=== PATIENT | male | born 1980 | race Caucasian/White ===

== ENCOUNTER 2016-11-26 22:35 | Emergency (ER) | payer OTHER ==
[2016-11-26] MEDS ORDERED: DIPH,PERTUS(ACELL)TETVAC-LF 0.5 ML VIAL IM ONE (23:56)
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
--- NOTE | 2016-11-27 00:36 | XR ---
EXAM: XR Left Finger(s), 2 or More Views. CLINICAL HISTORY: Reason: Pain TECHNIQUE: 3 coned-down views of the fifth digit with partial visualization of adjacent digits. COMPARISON: No relevant prior studies available. FINDINGS: Soft tissue injury. There is a punctate density seen at the plantar aspect of the soft tissues seen on all views. Correlate for small foreign body. Seen at level of tip of distal phalanx. On lateral view appears to be at the cutaneous surface. There is slight irregularly to the distal phalanx best appreciated on the PA view which may represent nondisplaced fracture. IMPRESSION: Possible fracture of the distal phalanx. Punctate density seen in the plantar aspect of soft tissues. Correlate for small foreign body. Soft tissue injury.
[2016-11-27] MEDS ORDERED: ceFAZolin 1,000 MG VIAL IM STA (00:40)
[2016-11-27] MEDS ORDERED: HYDROcodone/APAP 5-325MG 1 EACH TAB PO STA (01:19)
--- NOTE | 2016-11-27 01:36 | XR ---
EXAM: XR Left Finger(s), 2 or More Views. CLINICAL HISTORY: Reason: Pain TECHNIQUE: 2 cone-down views centered on the fifth digit. COMPARISON: Earlier same date FINDINGS: Tiny foreign body seen on previous is no longer present. There is a lucency in this area likely related to removal of foreign body. Soft tissue injury. Questionable lucency at the tuft of distal phalanx again noted. Subtle nondisplaced fracture is not entirely excluded. IMPRESSION: Interval removal of foreign body. Questionable lucency at the tuft of distal phalanx again noted. Subtle nondisplaced fracture is not entirely excluded. Findings equivocal.
[2016-11-27 01:38] VITALS: BP 142/54; PULSE 52; RESP 18; TEMP 97.8
== END 2016-11-27 01:38 | disposition home or self-care (01) ==
LOC: EC 22:35
DX: S62.667A Nondisplaced fracture of distal phalanx of left little finger, initial encounter for closed fracture (principal); S61.327A Laceration with foreign body of left little finger with damage to nail, initial encounter; F17.200 Nicotine dependence, unspecified, uncomplicated; Z23 Encounter for immunization; W23.0XXA Caught, crushed, jammed, or pinched between moving objects, initial encounter; Y92.69 Other specified industrial and construction area as the place of occurrence of the external cause; Y99.0 Civilian activity done for income or pay
CPT/HCPCS: 73140; 90715; 99283; 12001; 96372; 90471; J0690

== ENCOUNTER → 2018-06-18 | Outpatient (CLI) | payer OTHER ==
--- NOTE | 2018-06-18 09:56 | XR ---
EXAM TYPE: LUMBAR SPINE X RAY SERIES COMPARISON: NONE HISTORY: Pain TECHNIQUE: 3 views are submitted. FINDINGS: Alignment is anatomic. The pedicles are intact. The transverse processes are intact. There is no s pondylolysis or spondylolisthesis. IMPRESSION: 1. No acute process.
--- NOTE | 2018-06-18 09:58 | XR ---
EXAMINATION TYPE: XR sacrum coccyx DATE OF EXAM: 06/18/2018 COMPARISON: NONE HISTORY: Pain Three views are submitted. Sacrum is intact. SI joints are symmetric. Coccyx appears to be intact. Visualized pelvic structures intact. IMPRESSION: 1. No acute fracture. If symptoms persist consider CT scan.
--- NOTE | 2018-06-18 09:59 | XR ---
EXAMINATION TYPE: XR thoracic spine complete DATE OF EXAM: 06/18/2018 COMPARISON: NONE HISTORY: Pain Alignment is anatomic. There is no compression deformities. Mild hypertrophic changes are seen with multilevel mild degenerative disc disease. Curvature of the spine noted. IMPRESSION: 1. Multilevel degenerative disc disease.
== END ==
LOC: RADXRMAIN 09:10
PROVIDERS: ATTEND Emergency Medicine
DX: S30.0XXA Contusion of lower back and pelvis, initial encounter (principal); M51.34 Other intervertebral disc degeneration, thoracic region
CPT/HCPCS: 72072; 72100; 72220

== ENCOUNTER 2019-07-31 19:13 | Emergency (ER) | payer OTHER ==
[2019-07-31 19:19] VITALS: BP 140/94; PULSE 93; RESP 20; TEMP 97.8
[2019-07-31 19:50] LABS: Glucose,Whole Blood 93 mg/dL (75-99)
--- NOTE | 2019-07-31 19:54 | ED ---
General Adult HPI - General Chief complaint: Extremity Problem,Nontraumatic Stated complaint: Dizziness Numbness in feet Time Seen by Provider: 07/31/19 19:22 Source: patient Mode of arrival: ambulatory Limitations: no limitations - History of Present Illness Initial comments: Connor is a 38-year-old male with a history of psoriasis who presents to the emergency Department today with a multitude of chronic complaints. Connor reports that for the past 6 months or more he has noticed numbness in his bilateral feet, he reports that he feels like the balls of his feet to the toes tends to go numb at times. Sometimes at night and seems to be the worse, doesn't seem to be worse with any activity or associated with any back pain. He denies any weakness in the legs. He denies any symptoms of movement or restless leg type symptoms. He is not experiencing that today. Patient also states that sometimes he experiences chest pain at rest, though he is able to exercise regularly at the gym and ride his bike without chest pain shortness of breath lightheadedness or palpitations. He states that occasionally he just feels like his heart isn't beating right. This has not happened today or yesterday. Patient also states he has a rash in the right side of his groin that has been there for 4-6 months without improvement he's been applying Neosporin without improvement. Patient states that his girlfriend son came home from med school today and when he discussed his symptoms with him he advised the patient be evaluated by Dr. sal as possible. Patient does not have a primary care physician, has not seen a doctor in a number of years so he decided to come to the emergency department. Patient states that none of the symptoms started today or are new - Related Data Previous Rx's Medication Instructions Recorded Naproxen 500 mg PO Q12HR #30 tab 12/11/15 HYDROcodone/APAP 5-325MG [[place] 1 tab PO Q6HR PRN #6 tab 12/25/15 5-325] Cephalexin [Keflex] 500 mg PO Q6HR #40 cap 11/27/16 Allergies Allergy/AdvReac Type Severity Reaction Status Date / Time No Known Allergies Allergy Verified 07/31/19 19:19 Review of Systems ROS Statement: Those systems with pertinent positive or pertinent negative responses have been documented in the HPI. ROS Other: All systems not noted in ROS Statement are negative. Past Medical History Past Medical History: Skin Disorder History of Any Multi-Drug Resistant Organisms: MRSA Date of last positivie culture/infection: 05/21/15 MDRO Source:: left leg Past Surgical History: Orthopedic Surgery Additional Past Surgical History / Comment(s): right elbow Past Psychological History: Anxiety Smoking Status: Current every day smoker Past Alcohol Use History: None Reported Past Drug Use History: None Reported General Exam - General Exam Comments Initial Comments: Physical Exam GENERAL: Patient is well-developed and well-nourished. Patient is nontoxic and well-hydrated and is in no distress. HENT: Normocephalic, Atraumatic. Psoriatic rash on face EYES: PERRL, EOMI PULMONARY: Unlabored respirations. No audible rales rhonchi or wheezing was noted. CARDIOVASCULAR: There is a regular rate and rhythm without any murmurs gallops or rubs. ABDOMEN: Soft and nontender with normal bowel sounds. SKIN: Skin is warm, dry Rash in right groin region appears to be yeast in nature : Normal external genitalia NEUROLOGIC: Patient is alert and oriented x3. Moving all extremities spontaneously Normal strength in bilateral lower extremities MUSCULOSKELETAL: Normal extremities with adequate strength and full range of motion. No lower extremity swelling or edema. No calf tenderness. PSYCHIATRIC: Normal psychiatric evaluation. Limitations: no limitations Course Vital Signs 07/31/19 07/31/19 19:15 20:05 Temperature 97.8 F 97.8 F Pulse Rate 93 93 Respiratory 20 20 Rate Blood Pressure 140/94 140/94 O2 Sat by Pulse 98 98 Oximetry EKG Findings - EKG Comments: EKG Findings:: EKG was obtained due to complaint of occasional chestpain and palpitations. EKG was obtained at 1935 rate is 74 rhythm is sinus is leftward axis normal intervals, [place] 162, QRS 88, QTC [address] elevations or depressions is no evidence of acute ischemia or infarction. Medical Decision Making - Medical Decision Making The patient was seen and evaluated history is obtained from the patient. Patient has a multitude of chronic complaints, no acute complaints today in fact most the symptoms he is complaining about including the numbness in his feet he is not experiencing today. Has not experienced chest pain in the number of days. Denies any acute complaints today. Physical exam is unremarkable aside from a rash consistent with psoriasis as well as a rash in the right groin consistent with a candidal infection. Advised patient to use topical treatment for this. I discussed with the patient that he likely needs to follow with a primary care physician and have further tests run however medical screening exam reveals no acute findings no indication for further workup here in the emergency department. Patient comfortable with plan for outpatient follow-up. - Lab Data Lab Results 07/31/19 Range/Units 19:49 POC Glucose (mg/dL) 93 (75-99) mg/dL POC Glu Ethylene Compressor Operator ID Reese Allen Disposition Clinical Impression: Atypical chest pain, Peripheral neuropathy, Left flank pain Disposition: HOME SELF-CARE Condition: Stable Additional Instructions: You need to follow up with primary care physician, return to the emergency department if you're experiencing any worsening numbness in her legs, weakness in her legs, any chest pain or shortness of breath or any new or concerning symptoms. Is patient prescribed a controlled substance at d/c from ED?: No Referrals: None,Stated [Primary Care Provider] - 1-2 days
== END 2019-07-31 20:08 | disposition home or self-care (01) ==
LOC: EC 19:13
DX: G62.9 Polyneuropathy, unspecified (principal); R10.9 Unspecified abdominal pain; R07.89 Other chest pain; R21 Rash and other nonspecific skin eruption; F17.200 Nicotine dependence, unspecified, uncomplicated
CPT/HCPCS: 36415; 99284

== ENCOUNTER 2020-02-14 18:31 | Emergency (ER) | payer OTHER ==
[2020-02-14 18:42] VITALS: TEMP 98.7
--- NOTE | 2020-02-14 19:01 | XR ---
EXAMINATION TYPE: XR foot complete RT DATE OF EXAM: 02/14/2020 CLINICAL HISTORY: Pain and redness after stepping injury 2 days ago. TECHNIQUE: Frontal, lateral, and oblique images of the right foot are obtained. COMPARISON: None FINDINGS: There is no acute fracture/dislocation evident in the right foot. Some flexion in the toe s is present. The joint spaces in the right foot appear within normal limits. Mild subcutaneous edema along the plantar surface without suspicious radiodense or metallic foreign body identified. IMPRESSION: As above.
[2020-02-14] MEDS ORDERED: ceFAZolin 1,000 MG VIAL (IM USE) IM STA (19:09)
[2020-02-14] MEDS ORDERED: DIPH,PERTUS(ACELL)TETVAC-LF 0.5 ML VIAL IM ONE (19:09)
--- NOTE | 2020-02-14 19:15 | ED ---
Lower Extremity Injury HPI - General Chief Complaint: Extremity Injury, Lower Stated Complaint: stepped on nail Time Seen by Provider: 02/14/20 18:43 Source: patient Mode of arrival: ambulatory Limitations: no limitations - History of Present Illness Initial Comments: 39yo presenting for cc of puncture would by nail with infection concerns. Patient states that he stepped on a nail that went into his right 2nd toe on Saturday evening. Patient states that between yesterday and today he has had increasing redness/swelling. Patient states that he in unsure of his last tetanus. Patient denies fevers, chills general malaise He did state that they nail went through his shoe first. Denies drainage. Patient states he is able to wiggle toes and walk.Remaining ROS(-) - Related Data Previous Rx's Medication Instructions Recorded Naproxen 500 mg PO Q12HR #30 tab 12/11/15 HYDROcodone/APAP 5-325MG [[place] 1 tab PO Q6HR PRN #6 tab 12/25/15 5-325] Cephalexin [Keflex] 500 mg PO Q6HR #40 cap 11/27/16 Cephalexin [Keflex] 500 mg PO Q6HR 7 Days #28 cap 02/14/20 Ciprofloxacin HCl [Cipro] 750 mg PO BID 10 Days #20 tablet 02/14/20 Allergies Allergy/AdvReac Type Severity Reaction Status Date / Time No Known Allergies Allergy Verified 02/14/20 18:42 Review of Systems ROS Statement: Those systems with pertinent positive or pertinent negative responses have been documented in the HPI. ROS Other: All systems not noted in ROS Statement are negative. Past Medical History Past Medical History: Skin Disorder History of Any Multi-Drug Resistant Organisms: MRSA Date of last positivie culture/infection: 05/21/15 MDRO Source:: left leg Past Surgical History: Orthopedic Surgery Additional Past Surgical History / Comment(s): right elbow Past Psychological History: Anxiety Smoking Status: Current every day smoker Past Alcohol Use History: None Reported Past Drug Use History: Marijuana General Exam - General Exam Comments Initial Comments: General: The patient is awake and alert, in no distress, and does not appear acutely ill. Eye: Pupils are equal, round and reactive to light, extra-ocular movements are intact. No nystagmus. There is normal conjunctiva bilaterally. No signs of icterus. Gastrointestinal: Soft, non-distended, non-tender abdomen without masses or organomegaly noted. There is no rebound or guarding present. Musculoskeletal: Normal ROM, of all 5 digits of the right foot denie significant discomfort even at second toe. Puncture wound of the 2nd toe plantar surface. This is light redness of entire 2nd toe spreading about 1-2 inches proxmiately onto foot. Strength 5/5. Sensation intact. DP pulses equal bilaterally 2+. Neurological: A&O x 3. CN II-XII intact grossly, There are no obvious motor or sensory deficits. Coordination appears grossly intact. Speech is normal. Skin: Skin is warm and dry and no rashes or lesions are noted. Psychiatric: Cooperative, appropriate mood & affect, normal judgment. Limitations: no limitations Course Vital Signs 02/14/20 18:40 Temperature 98.7 F Pulse Rate 78 Respiratory 18 Rate Blood Pressure 120/76 O2 Sat by Pulse 97 Oximetry Medical Decision Making - Medical Decision Making 39-year-old male presenting today for chief complaint of puncture wound to the second toe of the right foot. Concern for infection. No pain out of proportion full range of motion of the toes. Patient has mild spread of redness. Discussed my concerns being that this is the foot and a puncture wound to the shoe for serious infection developing. Patient states he would like to trial oral antibiotics first--patient denies fevers, administration symptoms and discussed the case with my attending provider Dr. Faria who is agreeable to try outpatient antibiotics with strict return primary's for spreading of the redness is increasing swelling or pain, fevers. Patient verbalized understanding of the nature of puncture wound infections. Discharged appearing well,, nontoxic. Disposition Clinical Impression: Cellulitis, Puncture wound of toe of right foot with complication Disposition: HOME SELF-CARE Condition: Good Instructions (If sedation given, give patient instructions): Puncture Wound (ED), Cellulitis (DC) Additional Instructions: Please use medication as discussed. Please follow-up with family doctor in the next 2 days, IMMEDIATE RETURN FOR SPREADING OF REDNESS, FEVERS, INCREASING PAIN OR SWELLING TO THE ER. Please return to emergency room if the symptoms increase or worsen or for any other concerns. Prescriptions: Ciprofloxacin HCl [Cipro] 750 mg PO BID 10 Days #20 tablet Cephalexin [Keflex] 500 mg PO Q6HR 7 Days #28 cap Is patient prescribed a controlled substance at d/c from ED?: No Referrals: None,Stated [Primary Care Provider] - 1-2 days [facility] [NON-STAFF] - 1-2 days Time of Disposition: 19:14
[2020-02-14] MEDS ORDERED: CIPROFLOXACIN HCL 250 MG TAB PO STA (19:20)
[2020-02-14 19:48] VITALS: BP 108/80; PULSE 55; RESP 16
== END 2020-02-14 19:55 | disposition home or self-care (01) ==
LOC: EC 18:31
DX: S91.331A Puncture wound without foreign body, right foot, initial encounter (principal); L03.031 Cellulitis of right toe; F17.200 Nicotine dependence, unspecified, uncomplicated; Z86.14 Personal history of Methicillin resistant Staphylococcus aureus infection; W45.0XXA Nail entering through skin, initial encounter; Z23 Encounter for immunization
CPT/HCPCS: 99283; 96372; 90471; 73630; 90715; J0690